=== PATIENT | male | born 2000 | race Two or more races ===

== ENCOUNTER 2020-09-09 22:10 | Emergency (ER) | payer MEDICAID ==
[~2020-09-09] VITALS: Ht 180.3 cm; Wt 145.1 kg
[2020-09-09 22:27] VITALS: BP 140/87
== END 2020-09-10 01:15 | disposition home or self-care (01) ==
LOC: ER 22:12
DX: S16.1XXA Strain of muscle, fascia and tendon at neck level, initial encounter (principal); S05.11XA Contusion of eyeball and orbital tissues, right eye, initial encounter; E66.8 Other obesity; Z68.41 Body mass index [BMI] 40.0-44.9, adult; V43.52XA Car driver injured in collision with other type car in traffic accident, initial encounter; Y93.89 Activity, other specified; Y92.488 Other paved roadways as the place of occurrence of the external cause; Y99.8 Other external cause status
CPT/HCPCS: 70450; 70486; 71045; 72125

== ENCOUNTER 2022-03-19 17:28 | Emergency (ER) | payer MEDICAID ==
[~2022-03-19] VITALS: Ht 180.3 cm; Wt 145.1 kg
[2022-03-19 19:11] VITALS: BP 114/60
== END 2022-03-19 20:34 | disposition home or self-care (01) ==
LOC: ER 17:28
DX: S61.211A Laceration without foreign body of left index finger without damage to nail, initial encounter (principal); W26.8XXA Contact with other sharp object(s), not elsewhere classified, initial encounter; Y93.89 Activity, other specified; Y92.89 Other specified places as the place of occurrence of the external cause; Y99.8 Other external cause status
CPT/HCPCS: 12001; 73130; 99283; J2001

== ENCOUNTER 2022-03-22 11:52 | Emergency (ER) | payer MEDICAID ==
[~2022-03-22] VITALS: Ht 180.3 cm; Wt 147.9 kg
[2022-03-22 14:43] VITALS: BP 136/70
== END 2022-03-22 15:08 | disposition home or self-care (01) ==
LOC: ER 11:52
DX: S63.251D Unspecified dislocation of left index finger, subsequent encounter (principal); X58.XXXD Exposure to other specified factors, subsequent encounter